=== PATIENT | female | born 1980 | race Two or more races ===

== ENCOUNTER 2017-05-11 09:21 | Day surgery (SDC) | payer BC, OTHER ==
[2017-05-11 09:41] VITALS: BMI 21.7
[2017-05-11] MEDS ORDERED: ePHEDrine 50 mg/ml Inj ONE (09:52)
[2017-05-11] MEDS ORDERED: Succinylcholine 200 mg/10 ml Inj IV ONE (09:52)
[2017-05-11] MEDS ORDERED: Midazolam 2 MG/2 ML VIAL ONE (09:52)
[2017-05-11] MEDS ORDERED: Propofol 10 mg/ml Inj (20 ML) ONE ×2 (09:55→11:10)
[2017-05-11] MEDS ORDERED: Oxytocin 20 units in LR 0 ML IV ONE (09:57)
[2017-05-11 10:12] VITALS: RESP 18
[2017-05-11] MEDS ORDERED: Lactated Ringer's 1,000 ML IV ONE (10:20)
[2017-05-11 10:39] LABS: HEMOGLOBIN 12.3 g/dL (12.0-16.0); MEAN CELL VOLUME 96.7 fl (81.0-99.0); MEAN CORPUSCULAR HEMOGLOBIN 32.4 pg (27.0-31.0); MEAN CORPUSCULAR HGB CONC 33.5 g/dL (33.0-37.0); RBC 3.8 Mil/uL (3.80-5.20); RED CELL DISTRIBUTION WIDTH 13.6 % (11.5-14.5); WHITE BLOOD COUNT 4.3 K/uL (4.8-10.8)
[2017-05-11] MEDS ORDERED: HYDROmorphone 0.5 mg/0.5 ml ISec IVP PRN (11:23)
[2017-05-11] MEDS ORDERED: Lactated Ringer's 1,000 ML IV SCH (11:23)
[2017-05-11 12:49] VITALS: O2SAT 98
[2017-05-11 13:34] VITALS: BP 106/54; PULSE 66; TEMP 97.2
--- NOTE | 2017-05-18 15:15 | PCM.OP ---
Operative Report - Operative Report Date of Surgery/Procedure: 05/18/17 Time of Surgery/Procedure: 11:00 Surgeon: Frank Morris Lock Technician: Dr. Briscoe Anesthesia/Sedation: Gen. anesthesia Pre-Operative Diagnosis: missed Post-Operative Diagnosis: same Indication for Surgery: Missed Operative Findings: Normal external female genitalia. Normal urethra. Cervix was smooth, approximately 1 cm dilated. Vagina pink. Scant blood noted in the vagina. Uterus anteverted approximately 10 weeks in size. No adnexal masses were appreciated Procedure/Operation Description: After informed consent was obtained, we discussed medical and surgical management. We discussed risks, benefits, and alternatives to each procedure. The patient opted for surgical management of missed . The patient was then taken to the operating room. She was prepped and draped in the usual sterile fashion. A weighted speculum was inserted into the vagina, cervix was visualized. The cervix was then gently dilated. A #9 suction curette was introduced into uterine cavity and rotated in a clockwise fashion. A sharp curettage was then performed until a gritty texture was noted. The suction device was then reintroduced into uterine cavity , rotated in a clockwise fashion to remove any remaining products of conception. All instruments were then removed from the vagina. The tenaculum set was inspected and it was noted to be hemostatic. The patient was then awakened up from general anesthesia and taken to recovery room in awake and stable condition. All sponge, lap, needle, and instrument counts were correct x2. Estimated Blood Loss: Estimated blood loss was minimal. Patient received approximately 500 cc's of D5OR intraoperatively. Complications: none Discharge & Condition: patient tolerated the procedure well and was in stable condition
== END 2017-05-11 14:07 | disposition home or self-care (01) ==
LOC: H.OPSURG 09:21
PROVIDERS: ATTEND Obstetrics & Gynecology Gynecology
DX: O02.1 Missed abortion (principal)
CPT/HCPCS: 36415; 59820; 85027; 86850; 86900; 88305; J0330; J1170; J1885; J2001; J2210; J2250; J2704; J3010; J7030; J7120